=== PATIENT | female | born 2000 | race Caucasian/White ===

== ENCOUNTER 2024-04-27 16:00 | Emergency (ER) | payer OTHER ==
[2024-04-27 16:05] VITALS: BMI 30.2
[2024-04-27 16:30] LABS: HCG,QUALITATIVE URINE Positive
[2024-04-27 16:31] LABS: EPI CELLS 29 /uL (0-25.1); HYALINE CASTS 11 /uL (0-3.1); URINE APPEARANCE CLOUDY; URINE BACTERIA 4238 /uL (0-1359); URINE BILIRUBIN 2+ (NEGATIVE); URINE COLOR DK YELLOW; URINE GLUCOSE (UA) NEGATIVE (NEGATIVE); URINE KETONE 2+ (NEGATIVE); URINE LEUK ESTERASE 2+ (NEGATIVE); URINE NITRITE NEGATIVE (NEGATIVE); URINE PROTEIN 1+ (NEGATIVE); URINE RBC 8 /uL (0-23.9); URINE WBC 197 /uL (0-25.8)
[2024-04-27 16:47] LABS: URINE CRYSTALS NONE SEEN /hpf
[2024-04-27] MEDS: ONDANSETRON 4 MG/2 ML VIAL IVPUSH ONE (17:12)
[2024-04-27 17:34] LABS: POTASSIUM 4.7 mmol/L (3.5-5.1)
[2024-04-27 17:36] LABS: ALBUMIN 4.3 g/dl (3.4-5.0); BLOOD UREA NITROGEN 11.5 mg/dL (7-18); CALCIUM 10.3 mg/dL (8.5-10.1); MAGNESIUM 1.8 mg/dL (1.8-2.4)
[2024-04-27 17:39] LABS: PHOSPHOROUS 2.2 mg/dL (2.5-4.9)
[2024-04-27 17:41] LABS: TOT PROT 8.6 g/dl (6.4-8.2)
[2024-04-27] MEDS ORDERED: CEFTRIAXONE 1 GM/50 ML BAG ONE (18:40)
[2024-04-27] MEDS: CEFTRIAXONE 1,000 MG in DEXTROSE 5%-WATER - 50 ML IVPB ONE (18:51)
[2024-04-27 18:56] LABS: BASO % 0.3 % (0-2.0); EOS % 0.5 % (0-4.5); HEMATOCRIT 44.6 % (32.4-45.2); HEMOGLOBIN 15.3 GM/dL (10.7-15.3); LYMPH % 19.1 % (8-40); MCH 28.6 pg (25.7-33.7); MCHC 34.3 g/dl (32.0-36.0); MEAN CELL VOLUME 83.4 fl (80-96); MEAN PLT VOLUME 10.2 fl (7.5-11.1); MONO % 10.2 % (3.8-10.2); NEUT % 69.9 % (42.8-82.8); PLATELET COUNT 259 10^3/uL (134-434); RBC 5.35 M/mm3 (3.60-5.2); WHITE BLOOD COUNT 10.5 K/mm3 (4.0-10.0)
[2024-04-27] MEDS: FOLIC ACID INJECTION - 1 MG, THIAMINE HCL 100 MG, MULTIVIT INJECTION ADULT 10 ML in SOD... IVPB ONE (19:09)
[2024-04-27 20:52] VITALS: BP 118/74; PULSE 94; RESP 20; TEMP 98
== END 2024-04-27 22:16 | disposition home or self-care (01) ==
LOC: JER 16:00
PROC: 3E033GC Introduction of Other Therapeutic Substance into Peripheral Vein, Percutaneous Approach (ICD-10-PCS; principal; 2024-04-27)
PROC: 3E033GC Introduction of Other Therapeutic Substance into Peripheral Vein, Percutaneous Approach (ICD-10-PCS; 2024-04-27)
PROC: 3E033GC Introduction of Other Therapeutic Substance into Peripheral Vein, Percutaneous Approach (ICD-10-PCS; 2024-04-27)
PROC: 3E033GC Introduction of Other Therapeutic Substance into Peripheral Vein, Percutaneous Approach (ICD-10-PCS; 2024-04-27)
PROC: 3E033GC Introduction of Other Therapeutic Substance into Peripheral Vein, Percutaneous Approach (ICD-10-PCS; 2024-04-27)
PROC: 3E033GC Introduction of Other Therapeutic Substance into Peripheral Vein, Percutaneous Approach (ICD-10-PCS; 2024-04-27)
PROC: 3E033GC Introduction of Other Therapeutic Substance into Peripheral Vein, Percutaneous Approach (ICD-10-PCS; 2024-04-27)
PROC: 3E033GC Introduction of Other Therapeutic Substance into Peripheral Vein, Percutaneous Approach (ICD-10-PCS; 2024-04-27)
PROC: 3E03329 Introduction of Other Anti-infective into Peripheral Vein, Percutaneous Approach (ICD-10-PCS; 2024-04-27)
PROC: 3E033GC Introduction of Other Therapeutic Substance into Peripheral Vein, Percutaneous Approach (ICD-10-PCS; 2024-04-27)
DX: O21.0 Mild hyperemesis gravidarum (principal); O23.41 Unspecified infection of urinary tract in pregnancy, first trimester; Z3A.01 Less than 8 weeks gestation of pregnancy
CPT/HCPCS: 36415; 76817-TC; 80053; 81003; 83735; 84100; 84702; 84703; 85025; 86850; 86900; 86901; 87086; 87186; 93005; 93010; 99285-25

== ENCOUNTER 2024-12-11 09:35 | Inpatient (IN) | payer OTHER ==
[2024-12-11] MEDS: ELECTROLYTE-148 SOLN 1,000 ML IV SCH (11:45)
[2024-12-11 12:25] LABS: Reticulocyte % 1.61 % (0.5-1.7)
[2024-12-11 12:34] LABS: INR 0.91 (0.83-1.09); PROTHROMBIN TIME (PATIENT) 9.9 SEC (9.7-13.0)
[2024-12-11 12:35] LABS: ACTIVATED PTT 25.9 SECONDS (25.2-36.5)
[2024-12-11 12:46] LABS: POC NITRAZINE NEG
[2024-12-11 12:50] LABS: POTASSIUM 4.2 mmol/L (3.5-5.1)
[2024-12-11 12:52] LABS: CALCIUM 8.7 mg/dL (8.5-10.1)
[2024-12-11 12:53] LABS: ALBUMIN 2.5 g/dl (3.4-5.0); BLOOD UREA NITROGEN 10.1 mg/dL (7-18)
[2024-12-11 12:55] LABS: URIC ACID 4.8 mg/dL (2.6-7.2)
[2024-12-11 12:58] LABS: BILIRUBIN,TOTAL 0.2 mg/dL (0.2-1)
[2024-12-11 12:59] LABS: CREATININE 0.5 mg/dL (0.55-1.3)
[2024-12-11 13:00] LABS: TOT PROT 6.4 g/dl (6.4-8.2)
[2024-12-11] MEDS ORDERED: OXYTOCIN 30 UNITS in 0.9% NS 30 UNIT/500 ML INFUS.BAG IVPB ONE (13:01)
[2024-12-11] MEDS: OXYTOCIN 30 UNITS in 0.9% NS 30 UNIT/500 ML INFUS.BAG IVPB SCH (13:06)
[2024-12-11 13:37] VITALS: BMI 35.4
[2024-12-11 14:07] LABS: PH,URINE 5.5 (5.0-8.0); URINE APPEARANCE Clear; URINE BILIRUBIN Negative (NEGATIVE); URINE COLOR Yellow; URINE GLUCOSE (UA) Negative (NEGATIVE); URINE KETONE Negative (NEGATIVE); URINE LEUK ESTERASE Trace (NEGATIVE); URINE NITRITE Negative (NEGATIVE); URINE PROTEIN Negative (NEGATIVE); URINE UROBILINOGEN 0.2 mg/dL (0.2-1.0)
[2024-12-11] MEDS ORDERED: FENTANYL/BUPIVACAINE/NS/PF - PCEA - 50 ML DISP.SYRIN EP ONE ×2 (14:27→19:56)
[2024-12-11 14:35] VITALS: RESP 18
[2024-12-11 15:14] LABS: ABSOLUTE IMMATURE GRANULOCYTES 0.02 x10^3/uL (0.0-0.031); BASOPHILS # 0.03 x10^3/uL (0.01-0.08); EOSINOPHIL % 0.5 % (0.7-5.8); EOSINOPHILS # 0.04 x10^3/uL (0.04-0.36); HEMATOCRIT 33.1 % (34.1-44.9); HEMOGLOBIN 10.8 g/dL (11.2-15.7); MCHC 32.6 g/dl (32.2-35.5); MEAN CELL VOLUME 82.5 fl (79.4-94.8); MEAN PLT VOLUME 10.7 fl (9.4-12.3); MONOCYTE # 0.51 x10^3/uL (0.24-0.86); MONOCYTE % 5.8 % (4.7-12.5); PLATELET COUNT 262 x10^3/uL (182-369); RDW 13.7 % (12.1-16.5)
[2024-12-11] MEDS: FENTANYL/BUPIVACAINE/NS/PF - PCEA - 50 ML DISP.SYRIN EP SCH (15:15)
[2024-12-11] MEDS ORDERED: NALOXONE HCL 0.4 MG/ML VIAL IVPUSH PRN (15:18)
[2024-12-11] MEDS ORDERED: OXYTOCIN 20 UNITS in 0.9% NS 20 UNIT/1,000 ML INFUS.BAG IV ONE (19:25)
[2024-12-11] MEDS ORDERED: LIDOCAINE HCL 1% PRESERVATIVE FREE - 30ML VIAL ONE (19:26)
[2024-12-11] MEDS: OXYTOCIN 20 UNITS in 0.9% NS 20 UNIT/1,000 ML INFUS.BAG IV SCH (21:01)
[2024-12-11 21:27] LABS: CORD BASE EXCESS -2.4 mmol/L (0-2); CORD HCO3 22.7 mmHg (20-29); CORD PCO2 40.4 mmHg (30-78); CORD pH 7.368 (7.14-7.44)
[2024-12-11 21:28] LABS: CORD BASE EXCESS -4.4 mmol/L (0-2); CORD HCO3 22.5 mmHg (20-29); CORD PCO2 48.4 mmHg (30-78); CORD pH 7.286 (7.14-7.44)
[2024-12-11] MEDS ORDERED: BENZOCAINE 20% 57 GM BOTTLE TP PRN (21:43)
[2024-12-11] MEDS ORDERED: BISACODYL 10 MG SUPP.RECT RC PRN (21:43)
[2024-12-11] MEDS ORDERED: BENZOCAINE 28 GM HEMORRHOIDAL OINTMENT TP PRN (21:43)
[2024-12-11] MEDS ORDERED: WITCH HAZEL 50% (TUCKS) 40 PAD/JAR PAD TP PRN (21:43)
[2024-12-11] MEDS ORDERED: METHYLERGONOVINE MALEATE 0.2 MG/1 ML AMP IM PRN (21:43)
[2024-12-11] MEDS ORDERED: oxyCODONE HCL 5 MG TABLET PO PRN (21:43)
[2024-12-11] MEDS: IBUPROFEN 600 MG TABLET (FP) PO PRN (23:48)
[2024-12-12 06:52] LABS: ABSOLUTE IMMATURE GRANULOCYTES 0.04 x10^3/uL (0.0-0.031); BASOPHILS # 0.02 x10^3/uL (0.01-0.08); EOSINOPHIL % 0.3 % (0.7-5.8); EOSINOPHILS # 0.03 x10^3/uL (0.04-0.36); HEMATOCRIT 29.1 % (34.1-44.9); HEMOGLOBIN 9.6 g/dL (11.2-15.7); MEAN CELL VOLUME 83.9 fl (79.4-94.8); MONOCYTE # 0.74 x10^3/uL (0.24-0.86); MONOCYTE % 6.9 % (4.7-12.5); PLATELET COUNT 229 x10^3/uL (182-369); RDW 13.4 % (12.1-16.5)
[2024-12-12] MEDS: ACETAMINOPHEN 325 MG TABLET (FP) PO PRN (07:52)
[2024-12-13] MEDS: SENNOSIDES/DOCUSATE COMBO (SENNA PLUS) TABLET (UD) PO PRN (01:22)
[2024-12-13 09:32] VITALS: BP 125/87; PULSE 68; TEMP 97.9
== END 2024-12-13 13:00 | disposition home or self-care (01) | DRG 560 ==
LOC: JDEL 09:35 → JLDR 11:30 → J3W 23:22
PROVIDERS: ADMIT Obstetrics & Gynecology; ATTEND Obstetrics & Gynecology
PROC: 10E0XZZ Delivery of Products of Conception, External Approach (ICD-10-PCS; principal; 2024-12-11)
PROC: 0HQ9XZZ Repair Perineum Skin, External Approach (ICD-10-PCS; 2024-12-11)
PROC: 0W8NXZZ Division of Female Perineum, External Approach (ICD-10-PCS; 2024-12-11)
DX: O41.03X0 Oligohydramnios, third trimester, not applicable or unspecified (principal); O99.214 Obesity complicating childbirth; O70.0 First degree perineal laceration during delivery; Z3A.39 39 weeks gestation of pregnancy; Z37.0 Single live birth
CPT/HCPCS: 36415; 36600; 59025; 59409; 71046-TC-FY; 80053; 81003; 82570; 82803; 82977; 83010; 83986-QW; 84156; 84550; 85025; 85032; 85610; 85730; 86780; 86850; 86900; 86901